=== PATIENT | male | born 1980 | race American Indian/Alaskan Native ===

== ENCOUNTER 2021-03-08 19:51 | Emergency (ER) | payer SELFPAY ==
[2021-03-08 20:25] VITALS: BP 126/79
--- NOTE | 2021-03-08 21:15 | Emergency Department Report ---
ED General Adult HPI - General Chief complaint: Eye Problems Stated complaint: LT EYE PAIN/SWELLING Time Seen by Provider: 03/08/21 20:46 Source: patient Mode of arrival: Ambulatory Limitations: No Limitations - History of Present Illness Initial comments: 40-year-old male patient presents emergency department with complaints of painful swelling to his left eye starting yesterday. No preceding fall, trauma, or injury. Patient experienced similar symptoms on previous occasions as a child. Patient does not wear glasses or contacts. Denies fever, chills, congestion, cough, sore throat, vision changes, purulent drainage. Denies all other complaints at this time. - Related Data Previous Rx's Medication Instructions Recorded Last Taken Type Erythromycin [Erythromycin Ophth 1 applic OP QID 7 Days #1 tube 03/08/21 Unknown Rx Oint] Allergies Allergy/AdvReac Type Severity Reaction Status Date / Time No Known Allergies Allergy Verified 08/19/15 09:12 ED Review of Systems ROS: Stated complaint: LT EYE PAIN/SWELLING Other details as noted in HPI Other: GENERAL: Negative for fever. EYES: Positive for pain/swelling. CARDIOVASCULAR: Negative for chest pain. PULMONARY: Negative for shortness of breath. GASTROINTESTINAL: Negative for abdominal pain. MUSCULOSKELETAL: Negative for back pain. NEUROLOGICAL: Negative for headache. INTEGUMENTARY: Negative for rash. ED Past Medical Hx - Past Medical History Previous Medical History?: No - Surgical History Past Surgical History?: Yes Additional Surgical History: left foot - Social History Smoking Status: Current Every Day Smoker Substance Use Type: Alcohol - Medications Home Medications: Home Medications Medication Instructions Recorded Confirmed Last Taken Type Erythromycin [Erythromycin Ophth 1 applic OP QID 7 Days #1 tube 03/08/21 Unknown Rx Oint] ED Physical Exam - General Limitations: No Limitations - Other Other exam information: General: Awake, appropriately interactive, no acute distress. Eyes: Pupils equal and round. Extraocular movements intact. Conjugate gaze. Normal sclera. Small papule to the medial aspect of the left lower lid with surrounding erythema and localized conjunctival edema. Neck: Supple. Full range of motion intact. Cardiovascular: Normal peripheral perfusion. Pulmonary: No respiratory distress. Patient is speaking normally without use of accessory muscles. Skin: No apparent rashes or lesions. Neurological: No facial asymmetry. Speech is clear. Follows commands. Patient is alert and oriented. Musculoskeletal: Moves all four extremities spontaneously with normal range of motion. Psych: Cooperative. Appropriate mood and affect. ED Course Vital Signs 03/08/21 20:22 Temperature 98.2 F Pulse Rate 64 Respiratory 16 Rate Blood Pressure 126/79 O2 Sat by Pulse 96 Oximetry ED Medical Decision Making - Medical Decision Making Differential diagnosis including but not limited to: hordeolum, chalazion, dacryocystitis Patient presents to the emergency department with signs/symptoms consistent with hordeolum. No evidence of concomitant preseptal/orbital cellulitis. No clinical indication for further diagnostic work-up on an emergent basis at this time. Patient will be discharged home with antibiotic ointment and referral to ophthalmology for close outpatient follow-up. Emphasized the importance of warm compresses and refraining from attempting to force drainage from the affected area. Patient expressed understanding and is agreeable to plan of care. Strict return precautions provided. History, exam, diagnostic testing, and current condition do not suggest worrisome pathology to warrant further testing, continued ED treatment, admission, or surgical evaluation at this point. Given the low probability of a significant medical illness, it would be more likely to result in harm than benefit to perform further testing at this stage. Discussed findings, presumptive diagnosis, need for follow-up and specific signs/symptoms that should prompt immediate return to the emergency department. Instructions were explained in detail to the patient in addition to giving written discharge information. Patient expressed understanding and was given the opportunity to ask questions, all of which were satisfactorily answered prior to discharge home. Critical care attestation.: If time is entered above; I have spent that time in minutes in the direct care of this critically ill patient, excluding procedure time. ED Disposition Clinical Impression: Hordeolum Qualifiers: Hordeolum type: unspecified type Laterality: left Eyelid: lower Qualified Code(s): H00.015 - Hordeolum externum left lower eyelid Disposition: 01 HOME / SELF CARE / HOMELESS Is pt being admited?: No Does the pt Need Aspirin: No Condition: Stable Instructions: Stye Additional Instructions: Take Tylenol every 4 hours and Motrin every 8 hours as needed for pain. Apply erythromycin ointment to affected area as directed. Apply warm compresses to affected area 3 times daily. The area may begin to drain on its own. Do not forcefully attempt to express drainage from the area. Follow-up with critical power technician this week. Call tomorrow to schedule appointment. See referral information below. Return to the emergency department immediately for new or worsening symptoms. Prescriptions: Erythromycin [Erythromycin Ophth Oint] 1 applic OP QID 7 Days #1 tube Referrals: PATRICK MITCHELL MD [Staff Physician] - 3-5 Days DESTINEE PAYTON MD [Staff Physician] - 3-5 Days Time of Disposition: 21:22
== END 2021-03-08 21:47 | disposition home or self-care (01) ==
LOC: ED 19:51
DX: H00.015 Hordeolum externum left lower eyelid (principal); F17.200 Nicotine dependence, unspecified, uncomplicated; Z72.89 Other problems related to lifestyle; Z79.899 Other long term (current) drug therapy
CPT/HCPCS: 99282